=== PATIENT | male | born 1970 | race Caucasian/White ===

== ENCOUNTER 2018-04-12 09:09 | Emergency (ER) | payer SELFPAY ==
--- NOTE | 2018-04-12 09:44 | ED Physician Documentation ---
General Adult - HISTORIAN Historian: patient - HPI Stated Complaint: cough for 3 days, now pain on rt side Chief Complaint: General Adult Onset: days ago (3) Timing: still present Severity: moderate Further Comments: yes (Pt is a 47 yo male with cough and rib pain from coughing. Pt says he feels as he did when he broke a rib. No fever.) - ROS CONST: no problems EYES/ENT: none CVS/RESP: cough GI/: none MS/SKIN/LYMPH: none - PAST HX Past History: hypertension, other (CVA/TIA) Allergies/Adverse Reactions: Allergies Allergy/AdvReac Type Severity Reaction Status Date / Time Penicillins Allergy Verified 04/12/18 09:26 Home Medications: Ambulatory Orders Medication Instructions Recorded Unobtainable 04/12/18 - SOCIAL HX Smoking History: non-smoker - FAMILY HX Family History: No - VITAL SIGNS Vital Signs: Vital Signs Temp Pulse Resp BP Pulse Ox 99.1 F 99 H 21 144/82 96 04/12/18 09:19 04/12/18 09:19 04/12/18 09:19 04/12/18 09:19 04/12/18 09:19 - REVIEWED ASSESSMENTS Nursing Assessment Reviewed: Yes Vitals Reviewed: Yes Progress - Progress Progress: x-ray R ribs & PA: No fran consolidation or effusion. No bony abnormality to the right hemithorax is noted. Rx Z-keli (Azithromycin). Use as directed. Rx Robitussin AC (with codeine). Take 10 ml (two teaspoons) every 4 to 6 hours as needed for cough. Rx Lidoderm patch. Cut to size and apply to affected area for up to 12 hours per day. (3 patches, one refill of 3) General Adult Physical Exam - PHYSICAL EXAM GENERAL APPEARANCE: moderate distress EENT: pharynx normal NECK: normal inspection, supple RESPIRATORY: no resp distress, chest non-tender, breath sounds normal, other (splinting) CVS: reg rate & rhythm, heart sounds normal ABDOMEN: soft, no organomegaly, normal bowel sounds BACK: normal inspection SKIN: warm/dry, normal color EXTREMITIES: non-tender, normal range of motion, no evidence of injury NEURO: oriented X3, motor nml Discharge Clincal Impression: cough, R rib pain Referrals: Josias Ellis MD [Primary Care Provider] - Condition: Good Disposition: 01 HOME, SELF-CARE Decision to Admit: NO Decision Time: 11:06
--- NOTE | 2018-04-12 10:57 | Diagnostic Imaging Report ---
OSMANI YAP [facility] [id number] [facility] [address] [id number] Report Submission Date: Apr 12, 2018 10:45:21 AM SYSTEMS CONSULTANT Patient Study Name: ADDIS LAUGHLIN Date: Apr 12, 2018 9:53:05 AM SYSTEMS CONSULTANT Modality Type: DX Gender: M Description: RIBS UNILATERAL W/ PA CHEST : 68 Institution: [facility] Physician: OSMANI YAP Exam: Chest and right RIBS. History: Cough. Pain. PA view the chest and AP and oblique views of the right hemithorax are submitted. Lung easley are well aerated without fran consolidation or effusion. Heart size is normal with atherosclerotic plaque seen in the aorta. The bony elements of the right hemithorax are grossly intact. No pleural or periosteal reaction is seen. No pneumothorax is identified. Impression: No fran consolidation or effusion. No bony abnormality to the right hemithorax is noted. Electronically signed on Apr 12, 2018 10:45:21 AM SYSTEMS CONSULTANT by: Haim MATUTE
[2018-04-12 11:35] VITALS: BP 142/87
== END 2018-04-12 11:17 | disposition home or self-care (01) ==
LOC: ED 09:09
DX: R05 Cough (principal); R07.81 Pleurodynia
CPT/HCPCS: 71101; 99283